=== PATIENT | male | born 1955 | race Caucasian/White ===

== ENCOUNTER 2017-01-07 15:54 | Inpatient (IN) | payer OTHER ==
[~2017-01-07] VITALS: Ht 170.2 cm; Wt 85.0 kg
[~2017-01-07 15:54] MED LIST: BENICAR HCT 12.1 TAB PO; LIPITOR20 MG PO; NORVASC 5MG5 MG/TAB PO
[2017-01-30] MEDS ORDERED: VIVLODEX10 MG PO (09:05)
[2017-02-02] VITALS (11 sets, daily range): BP systolic 102–116; BP diastolic 56–71; PULSE 57–83; TEMP 97.2–98.6
[2017-02-02] MEDS ORDERED: DIOVAN HCT 25 M1 TAB PO (03:17)
[2017-02-02] MEDS ORDERED: DESYREL 50MG50 MG PO (03:19)
[2017-02-02] MEDS ORDERED: MULTIPLE VITAMI1 CAP PO (05:50)
[2017-02-02] MEDS ORDERED: VITAMIN C500 MG PO (05:51)
[2017-02-02] MEDS ORDERED: IRON325 M2 PO (05:51)
[2017-02-02] MEDS ORDERED: FOLIC ACID0.4 MG PO (05:51)
[2017-02-03 00:32] VITALS: BP 97/51; PULSE 79; TEMP 99.9
[2017-02-03 03:47] VITALS: BP 96/59; PULSE 70; TEMP 99
[2017-02-03 07:50] VITALS: BP 107/56; PULSE 87; TEMP 99
[2017-02-03 08:17] LABS: HEMATOCRIT 35.6 % (42.0-52.0); HEMOGLOBIN 11.9 g/dl (13.5-18.0)
[2017-02-03 11:32] VITALS: BP 110/66; PULSE 74; TEMP 98.6
[2017-02-03 15:49] VITALS: BP 107/82; PULSE 79; TEMP 97.8
[2017-02-03 19:25] VITALS: BP 124/79; PULSE 87; TEMP 99.5
[2017-02-04 00:19] VITALS: BP 119/69; PULSE 80; TEMP 98.4
[2017-02-04 05:14] VITALS: BP 119/68; PULSE 79; TEMP 99.9
[2017-02-04] MEDS ORDERED: ASPI325T6 PO (06:39)
[2017-02-04] MEDS ORDERED: NORCO 325 MG-7.1 TAB PO (06:40)
[2017-02-04] MEDS ORDERED: TYLENOL 500MG500 MG PO (06:41)
[2017-02-04] MEDS ORDERED: ROXICODONE 55 MG/TAB PO (06:41)
[2017-02-04] MEDS ORDERED: COLACE 100100 MG/CAP PO (06:42)
[2017-02-04 06:48] LABS: HEMATOCRIT 34.1 % (42.0-52.0); HEMOGLOBIN 11.6 g/dl (13.5-18.0)
[2017-02-04 07:39] VITALS: BP 119/69; PULSE 93; TEMP 98
== END 2017-02-04 14:15 | disposition home or self-care (01) | DRG 470 ==
LOC: JCC 02-02 05:28
PROVIDERS: Orthopaedic Surgery
PROC: 0SRD0J9 Replacement of Left Knee Joint with Synthetic Substitute, Cemented, Open Approach (ICD-10-PCS; principal; 2017-02-02 07:30)
DX: M17.12 Unilateral primary osteoarthritis, left knee (principal); I10 Essential (primary) hypertension; Z87.891 Personal history of nicotine dependence
CPT/HCPCS: A4315; A9284; C1713; C1776; J0690; J2250; J2405; J2704; J3010; J7120

== ENCOUNTER → 2017-01-22 | Outpatient (CLI) | payer OTHER ==
[2005-12-19 12:55] VITALS: TEMP 98.5
[~2017-01-22] MED LIST changes: +ASPI325T6 PO; +COLACE 100100 MG/CAP PO; +DESYREL 50MG50 MG PO; +DIOVAN HCT 25 M1 TAB PO; +FOLIC ACID0.4 MG PO; +IRON325 M2 PO; +MULTIPLE VITAMI1 CAP PO; +NORCO 325 MG-7.1 TAB PO; +ROXICODONE 55 MG/TAB PO; +TYLENOL 500MG500 MG PO; +VITAMIN C500 MG PO; +VIVLODEX10 MG PO
== END ==
LOC: COL.LAB 12:31
DX: Z53.9 Procedure and treatment not carried out, unspecified reason (principal)

== ENCOUNTER → 2017-01-22 | Outpatient (CLI) | payer OTHER ==
[2005-12-19 12:55] VITALS: TEMP 98.5
== END ==
LOC: COL.LAB 19:06
DX: Z01.812 Encounter for preprocedural laboratory examination (principal); M25.862 Other specified joint disorders, left knee

== ENCOUNTER 2017-03-24 11:52 | Inpatient (IN) | payer OTHER ==
[~2017-03-24] VITALS: Ht 170.2 cm; Wt 83.0 kg
[2017-05-11] VITALS (11 sets, daily range): BP systolic 91–127; BP diastolic 56–80; PULSE 59–88; TEMP 98.2–101.4
[2017-05-12] VITALS (8 sets, daily range): BP systolic 102–146; BP diastolic 56–74; PULSE 69–87; TEMP 98.2–100.8
[2017-05-12 06:22] LABS: HEMATOCRIT 35.9 % (42.0-52.0); HEMOGLOBIN 12.1 g/dl (13.5-18.0)
[2017-05-13 04:05] VITALS: BP 122/64; PULSE 90; TEMP 99.1
[2017-05-13 06:04] LABS: HEMOGLOBIN 12.1 g/dl (13.5-18.0)
[2017-05-13 06:05] LABS: HEMATOCRIT 35.7 % (42.0-52.0)
[2017-05-13] MEDS ORDERED: ASPI325T6 PO (06:43)
[2017-05-13] MEDS ORDERED: TYLENOL 500MG500 MG PO (06:45)
[2017-05-13] MEDS ORDERED: NORCO 325 MG-7.1 TAB PO (06:47)
[2017-05-13] MEDS ORDERED: COLACE 100100 MG/CAP PO (06:47)
[2017-05-13] MEDS ORDERED: ROXICODONE 55 MG/TAB PO (06:47)
[2017-05-13 07:22] VITALS: BP 135/74; PULSE 88; TEMP 99.8
== END 2017-05-13 12:49 | disposition home or self-care (01) | DRG 468 ==
LOC: JCC 05-05 11:15
PROVIDERS: Orthopaedic Surgery
PROC: 0SRC0J9 Replacement of Right Knee Joint with Synthetic Substitute, Cemented, Open Approach (ICD-10-PCS; principal; 2017-05-11 07:30)
PROC: 0SPV0JZ Removal of Synthetic Substitute from Right Knee Joint, Tibial Surface, Open Approach (ICD-10-PCS; 2017-05-11 07:30)
DX: T84.092A Other mechanical complication of internal right knee prosthesis, initial encounter (principal); M17.11 Unilateral primary osteoarthritis, right knee
CPT/HCPCS: A4315; A9284; C1713; C1776; J2250; J2270; J2370; J2704; J2765; J3010; J7120

== ENCOUNTER → 2017-05-04 | Outpatient (CLI) | payer OTHER | LOC: COL.LAB 17:23 | DX: Z01.812 Encounter for preprocedural laboratory examination (principal) ==

== ENCOUNTER → 2020-04-24 | Outpatient (CLI) | payer BC | LOC: ZCOL.LAB 11:42 | DX: Z20.828 Contact with and (suspected) exposure to other viral communicable diseases (principal) ==

== ENCOUNTER 2021-09-09 17:40 | Emergency (ER) | payer BC ==
[~2021-09-09] VITALS: Ht 170.2 cm; Wt 113.6 kg
[2021-09-09 17:44] VITALS: TEMP 98.7
[2021-09-09 17:59] LABS: BASO % 0.4 % (0.0-2.0); EOS # 0.1 K/mm3 (0.0-0.7); EOS % 2.3 % (0-4.0); GRAN # 2.6 K/mm3 (1.4-6.5); GRAN % 46.8 % (42.2-75.2); HEMOGLOBIN 12.4 g/dl (13.5-18.0); LYMPH # 2.1 K/mm3 (1.2-3.4); LYMPH % 38.3 % (20.0-51.0); MEAN CELL VOLUME 92 fl (80.0-100.0); MEAN CORPUSCULAR HEMOGLOBIN 32 pg (27.0-31.0); MEAN CORPUSCULAR HGB CONC 34 g/dl (33.0-37.0); MEAN PLATELET VOLUME 8.6 fl (7.4-10.4); MONO # 0.7 K/mm3 (0.1-0.6); MONO % 11.7 % (1.7-9.3); PLATELET COUNT 197 K/mm3 (130-400); RED BLOOD COUNT 3.94 M/mm3 (4.20-5.60); REDCELL DISTRIBUTION WIDTH-CV 13.2 % (11.5-14.5)
[2021-09-09 18:01] LABS: HEMATOCRIT 36.4 % (42.0-52.0)
[2021-09-09 18:31] LABS: ALANINE AMINOTRANSFERASE 32 U/L (0-55); ALBUMIN 3.6 gm/dL (3.4-4.8); ALKALINE PHOSPHATASE 72 U/L (40-150); ANION GAP 9 mmol/L (7-16); AST,SGOT 27 U/L (5-34); BILIRUBIN,TOTAL 0.4 mg/dL (0.2-1.2); BLOOD UREA NITROGEN 22 mg/dL (8-26); CALCIUM 8.7 mg/dL (8.4-10.2); CARBON DIOXIDE 23 mmol/L (23-31); CHLORIDE 108 mmol/L (98-107); CREATININE, serum 1.37 mg/dL (0.72-1.25); GLUCOSE 101 mg/dL (70-99); POTASSIUM 3.3 mmol/L (3.5-4.5); SODIUM 140 mmol/L (136-145); TOTAL PROTEIN 6.5 gm/dL (6.2-8.1)
[2021-09-09 18:43] LABS: ALCOHOL(ethanol),MEDICAL < 10 mg/dL (0-10)
[2021-09-09 20:50] VITALS: BP 155/102; PULSE 89
== END 2021-09-09 20:50 | disposition short-term general hospital (02) ==
LOC: COL.ER 17:40
PROVIDERS: Family Medicine
DX: S62.102A Fracture of unspecified carpal bone, left wrist, initial encounter for closed fracture (principal); S82.002A Unspecified fracture of left patella, initial encounter for closed fracture; S92.902A Unspecified fracture of left foot, initial encounter for closed fracture; S01.91XA Laceration without foreign body of unspecified part of head, initial encounter; I10 Essential (primary) hypertension; Z48.02 Encounter for removal of sutures; Z79.899 Other long term (current) drug therapy; W13.2XXA Fall from, out of or through roof, initial encounter; Y93.89 Activity, other specified
CPT/HCPCS: J2270; Q9967

== ENCOUNTER 2022-06-20 08:30 | Outpatient (RCR) | payer BC ==
[2022-06-19 14:28] VITALS: BP 138/85; PULSE 88; TEMP 98.8
--- NOTE | 2022-06-19 15:27 | NUR ---
Patient reported to the express unit with an order for a PICC exchange due to PICC line "falling out" at home. Patient reports that the home health nurse did not have the proper StatLock for his PICC line when she did her last dressing change and since then the PICC line had come out. Upon inspection of the PICC line it was found that it was at least out of the body 35 cm or more. Due to concerns of infection a sterile exchange is not an option. After conversation with the patient and review of procedure notes from the PICC line placement at [facility], it was noted that the patient had to have his PICC line placed in interventional radiology because there was difficulty threading the catheter. Dr. Mast was contacted via phone. A verbal order was received by Malia Eid RN from Dr. Mast for the PICC line removal, PICC line placement, interventional radiology with fluoroscopy and injected Contrast, if needed, and an intermittent IV placement for his home IV antibiotics scheduled for today. Patient updated on the status of the PICC line replacement. At the time of PICC line removal, the sterile dressing was removed and PICC line was completely out of the patient's body. Site was cleansed with ChloraPrep x1 and sterile dressing was applied.A 22-gauge IV was initiated in the patient's left upper arm. The patient was scheduled for a PICC line placement tomorrow morning at 830 in the [facility] [facility] with interventional radiologist and fluoroscopy as an option if needed. Patient agreed and verbalized understanding of the plan for PICC placement. Consent obtained for PICC placement.
[~2022-06-20] VITALS: Ht 170.2 cm; Wt 86.3 kg
[2022-06-20 08:12] VITALS: BP 134/77; PULSE 93; TEMP 98.3
[~2022-06-20 08:30] MED LIST changes: +ASPIRIN E.C. 8181 MG PO; +COZAAR 25MG25 MG/TAB PO; +NEURONTIN300 MG/CAP PO
--- NOTE | 2022-06-20 12:55 | NUR ---
Contacted [facility] and attempted to give report to Bee. Message left on voice mail.
--- NOTE | 2022-06-20 15:27 | NUR ---
Report given to Bee at [facility]. Phone number provided to contact us for any comments, questions, and/or concerns. Adivsed to obtain a different stat lock device. Voiced understanding of instructions.
== END 2022-06-20 12:05 | disposition home or self-care (01) ==
LOC: COL.RAD 08:30 → EUO 12:05
DX: Z45.2 Encounter for adjustment and management of vascular access device (principal)
CPT/HCPCS: C1751